=== PATIENT | male | born 1935 | race Hispanic/Latino ===

== ENCOUNTER 2016-02-28 14:08 | Outpatient (CLI) | payer MEDICARE, OTHER ==
--- NOTE | 2016-02-29 09:21 | Magnetic Resonance Report ---
MRI ABDOMEN WITH AND WITHOUT CONTRAST: INDICATION: Fatty liver. COMPARISON: December 2015 [address] FINDINGS: Multiplanar and multisequence MRI of the abdomen attempted utilizing 15 mL multihance intravenously, though very limited due to patient's inability to hold breath. Cirrhotic hepatic contour again noted without definite focal suspicious hypervascular lesions or biliary dilatation, to the extent assessed. No MRI evidence of fatty hepatic infiltration. Patent veins. Prominent spleen, though approximately 12 cm in midclavicular length. Tiny recanalized paraumbilical vein. Few varices medial to the spleen posteriorly noted with suspected splenorenal shunt. No ascites or definite paraesophageal varices, however. No definite size significant adenopathy. Gallbladder, pancreas, adrenals and IVC appear within normal limits. Nonaneurysmal abdominal aorta with an infrarenal short dissection flap incidentally again noted with opacified both lumens as also some atherosclerotic changes/thrombus on the left as on axial series 15, image 105, amongst others. Nonhydronephrotic kidneys with an approximately 2.4 cm left upper renal pole simple cortical cyst again noted. Normal bowel, marrow and muscle signal. Few bony degenerative changes. Lung bases again suggest top normal heart size. No effusions. Nonspecific distal esophageal wall thickening, not excluded for gastroesophageal reflux and/or hiatal hernia, amongst others. CONCLUSION: 1. Cirrhosis and few splenorenal varices without MRI evidence of fatty hepatic infiltration. 2. Various other incidental findings, including infrarenal aortic dissection, left renal cyst and distal esophageal prominence/thickening on this exam limited due to motion artifact, as described. Thank you for the opportunity to participate in this patient's care.
== END 2016-02-28 14:09 | disposition home or self-care (01) ==
LOC: MRI 14:08
PROVIDERS: ATTEND Internal Medicine Gastroenterology
DX: N28.1 Cyst of kidney, acquired (principal); K74.69 Other cirrhosis of liver; K76.0 Fatty (change of) liver, not elsewhere classified; K92.1 Melena
CPT/HCPCS: 36415; 74183; 82565; 84520; A9577

== ENCOUNTER 2016-03-04 10:54 | Outpatient (CLI) | payer MEDICARE, OTHER | END 2016-03-04 10:55 | disposition home or self-care (01) | LOC: LAB 10:54 | PROVIDERS: ATTEND Internal Medicine Nephrology | DX: E87.5 Hyperkalemia (principal) | CPT/HCPCS: 36415; 84132 ==

== ENCOUNTER 2016-09-29 08:49 | Outpatient (CLI) | payer MEDICARE, OTHER ==
[2016-09-29 09:13] LABS: Hematocrit 39.6 % (35.5-45.6); Hemoglobin 13.5 gm/dl (11.8-15.2); Mean Corpuscular HGB Conc 34 % (32-34); Mean Corpuscular Hemoglobin 36 pg (28-32); Mean Corpuscular Volume 105 fl (84-94); Red Blood Count 3.76 M/mm3 (3.65-5.03); Red Cell Distribution Width 14.3 % (13.2-15.2)
[2016-09-29 09:15] LABS: Platelet Count 89 K/mm3 (140-440)
[2016-09-29 09:34] LABS: Albumin 3.2 g/dL (3.9-5); Albumin/Globulin Ratio 0.9 %; BUN/Creatinine Ratio 8.75; Calcium 8.9 mg/dL (8.4-10.2); Chloride 105.6 mmol/L (98-107); Total Protein 6.9 g/dL (6.3-8.2)
== END 2016-09-29 08:50 | disposition home or self-care (01) ==
LOC: LAB 08:49
PROVIDERS: ATTEND Specialist
DX: F03.91 Unspecified dementia, unspecified severity, with behavioral disturbance (principal); F02.80 Dementia in other diseases classified elsewhere, unspecified severity, without behavioral disturbance, psychotic disturbance, mood disturbance, and anxiety
CPT/HCPCS: 36415; 80053; 82164; 82607; 83921; 84443; 85027; 86592